=== PATIENT | female | born 1980 | race Asian ===

== ENCOUNTER 2020-12-14 09:55 | Outpatient (CLI) | payer OTHER | END 2020-12-14 10:06 | disposition home or self-care (01) | LOC: MAMO-SONO 09:55 | PROVIDERS: ATTEND Obstetrics & Gynecology | DX: N60.11 Diffuse cystic mastopathy of right breast (principal); Z12.31 Encounter for screening mammogram for malignant neoplasm of breast ==

== ENCOUNTER 2021-05-14 09:16 | Outpatient (CLI) | payer OTHER | END 2021-05-14 09:28 | disposition home or self-care (01) | LOC: SONOGRAMA 09:16 | PROVIDERS: ATTEND Obstetrics & Gynecology Gynecologic Oncology | DX: R19.07 Generalized intra-abdominal and pelvic swelling, mass and lump (principal) ==

== ENCOUNTER 2021-09-06 10:06 | Outpatient (CLI) | payer OTHER | END 2021-09-06 10:07 | disposition home or self-care (01) | LOC: SONOGRAMA 10:06 | PROVIDERS: ATTEND Obstetrics & Gynecology Gynecologic Oncology | DX: N83.291 Other ovarian cyst, right side (principal) ==

== ENCOUNTER 2022-07-26 12:51 | Outpatient (CLI) | payer OTHER | END 2022-07-26 13:07 | disposition home or self-care (01) | LOC: SONOGRAMA 12:51 | PROVIDERS: ATTEND Obstetrics & Gynecology Gynecologic Oncology | DX: Z15.01 Genetic susceptibility to malignant neoplasm of breast (principal) ==